=== PATIENT | female | born 1990 | race African-American/Black ===

== ENCOUNTER 2017-06-27 20:18 | Emergency (ER) | payer BC, OTHER | END 2017-06-27 21:44 | disposition home or self-care (01) | LOC: ERS 20:18 | DX: J06.9 Acute upper respiratory infection, unspecified (principal); J45.909 Unspecified asthma, uncomplicated | CPT/HCPCS: 87081; 87430; 87804; 99283 ==

== ENCOUNTER 2018-10-15 12:50 | Emergency (ER) | payer BC | END 2018-10-15 13:03 | disposition left against medical advice (07) | LOC: ERS 12:50 | DX: Z53.21 Procedure and treatment not carried out due to patient leaving prior to being seen by health care provider (principal) ==

== ENCOUNTER 2018-10-15 15:34 | Emergency (ER) | payer BC | END 2018-10-15 16:07 | disposition left against medical advice (07) | LOC: ERS 15:34 | DX: Z53.21 Procedure and treatment not carried out due to patient leaving prior to being seen by health care provider (principal) ==

== ENCOUNTER 2024-12-21 07:36 | Day surgery (SDC) | payer BC ==
[2024-12-21] MEDS ORDERED: Acetaminophen 500 MG TAB ONE (08:09)
[2024-12-21] MEDS: Acetaminophen 500 MG TAB PO SCH (08:10)
[2024-12-21 08:48] VITALS: BP 115/70; TEMP 97.9
== END 2024-12-21 13:54 | disposition home or self-care (01) ==
LOC: ONC/OP 07:36
PROVIDERS: ATTEND Student in an Organized Health Care Education/Training Program
DX: O99.019 Anemia complicating pregnancy, unspecified trimester (principal)
CPT/HCPCS: 96365; 96366; J1756; J7050